=== PATIENT | female | born 1960 | race Caucasian/White ===

== ENCOUNTER 2017-03-26 07:53 | Inpatient (IN) | payer OTHER ==
[~2017-03-26] VITALS: Ht 165.1 cm; Wt 81.9 kg
[~2017-03-26 07:53] MED LIST: ASPIRIN325 MG PO; ATACAND32 MG PO; BENICAR20 MG PO; BENZONATATE200 MG PO; CEFUROXIME500 MG PO; CELEBREX200 MG PO; ESTRACE42.5 GM VG; FERREX 150150 MG PO; FOLIC ACID1 MG PO; LEVAQUIN500 MG PO; LEVOTHYROXINE50 MCG PO; NAPROSYN-EC500 MG PO; NORVASC5 MG PO; OMEPRAZOLE40 M1 PO; OXCARBAZEPINE300 MG PO; PROAIR HFA8.5 GM IH; RELPAX40 MG PO; SULFASALAZINE500 MG PO; VIIBRYD40 MG PO; WELLBUTRIN XL300 MG PO
[2017-03-26 08:16] VITALS: BP 131/69
[2017-03-26 15:04] VITALS: BP 119/74
[2017-03-26 15:28] VITALS: BP 119/74
[2017-03-26 16:13] VITALS: BP 138/77
[2017-03-26 20:24] VITALS: BP 102/66
[2017-03-27] VITALS (7 sets, daily range): BP systolic 101–134; BP diastolic 55–72
[2017-03-27 06:48] LABS: HEMATOCRIT 34.6 % (36.0-46.0)
[2017-03-27 07:24] LABS: MCV 91.8 FL (83-99)
[2017-03-28 06:34] LABS: HEMATOCRIT 27.9 % (36.0-46.0); MCV 89.1 FL (83-99)
[2017-03-28 07:40] VITALS: BP 106/58
[2017-03-28 15:00] VITALS: BP 116/58
[2017-03-28 23:59] VITALS: BP 113/51
[2017-03-29 07:58] VITALS: BP 119/61
[2017-03-29] MEDS ORDERED: OXYCONTIN10 MG PO (08:53)
[2017-03-29] MEDS ORDERED: OXYCODONE HCL5 MG PO (08:53)
[2017-03-29] MEDS ORDERED: ELIQUIS2.5 MG PO (08:53)
== END 2017-03-29 14:11 | DRG 470 ==
LOC: 2SOUTH → 3EAST 14:36 → 2SOUTH 14:41 → 3EAST 03-29 14:11
PROVIDERS: Orthopaedic Surgery
PROC: 0SRC0J9 Replacement of Right Knee Joint with Synthetic Substitute, Cemented, Open Approach (ICD-10-PCS; principal; 2017-03-26)
DX: M17.11 Unilateral primary osteoarthritis, right knee (principal); I10 Essential (primary) hypertension; E78.00 Pure hypercholesterolemia, unspecified; E03.9 Hypothyroidism, unspecified; K21.0 Gastro-esophageal reflux disease with esophagitis; Z83.3 Family history of diabetes mellitus
CPT/HCPCS: 85014; 85018; 97530 GP; C1713; J0131; J0690; J1170; J1885; J2175; J2250; J2405; J2795; J7050

== ENCOUNTER 2017-05-08 07:25 | Day surgery (SDC) | payer OTHER ==
[~2017-05-08] VITALS: Ht 165.1 cm; Wt 66.2 kg
[~2017-05-08 07:25] MED LIST changes: +ELIQUIS2.5 MG PO; +OXYCODONE HCL5 MG PO; +OXYCONTIN10 MG PO
[2017-05-08 07:56] VITALS: BP 146/87
[2017-05-08 08:16] LABS: HEMATOCRIT 33.8 % (36.0-46.0); MCH 28.4 PG (29.0-34.0); MCHC 32.8 G/DL (30.0-36.0); MCV 86.4 FL (83-99); MEAN PLAT.VOLUME 9.7 uM^3 (9.5-12.4); PLATELET COUNT 329 K/uL (156-360); RBC DIS.WIDTH-CV 13.3 % (11.8-14.6); RBC DIS.WIDTH-SD 41.4 % (39-53); RED BLOOD COUNT 3.91 M/uL (3.80-5.20); WHITE BLOOD COUNT 5.6 K/uL (4.1-10.2)
[2017-05-08 11:29] VITALS: BP 134/84
[2017-05-08 12:24] VITALS: BP 121/79
== END 2017-05-08 12:32 | disposition home or self-care (01) ==
LOC: SDC 07:25
PROVIDERS: Orthopaedic Surgery
PROC: 0SNCXZZ Release Right Knee Joint, External Approach (ICD-10-PCS; principal; 2017-05-08)
DX: M24.661 Ankylosis, right knee (principal); M25.661 Stiffness of right knee, not elsewhere classified; Z96.651 Presence of right artificial knee joint; I10 Essential (primary) hypertension; E03.9 Hypothyroidism, unspecified; K21.9 Gastro-esophageal reflux disease without esophagitis
CPT/HCPCS: 85027; J0131; J1100; J1170; J2250; J2405; J3010